=== PATIENT | female | born 1945 | race Caucasian/White ===

== ENCOUNTER 2018-09-06 14:20 | Observation (INO) | payer MEDICARE, BC ==
[~2018-09-06] VITALS: Ht 170.2 cm; Wt 67.6 kg
--- NOTE | ~2018-09-06 | EC ---
PATIENT:KARIN PARKER DATE OF SERVICE: 09/06/18 SEX: F MEDICAL RECORD: [id number] DATE OF : [birth year] LOCATION:D[facility] AGE OF PATIENT: 73 ADMISSION DATE: 09/06/18 REFERRING PHYSICIAN: INTERPRETING PHYSICIAN: JM BRUCE MD ECHOCARDIOGRAM REPORT ECHO CHARGES 4 ECHO COMPLETE Date: 09/07/18 CLINICAL DIAGNOSIS: TIA/HTN ECHOCARDIOGRAPHIC MEASUREMENTS (adult normal given) AC root (d.<3.7cm) 2.5 cm LV Septum d (<1.2 cm> 1.4 cm Valve Excursion 1.3 cm LV Septum (systole) 1.8 cm Left Atria (s.<4.0cm> 2.6 cm LVPW d(<1.2cm) 1.5 cm RV (d.<2.3cm) 3.3 cm LVPW (sytole) 1.6 cm LV diastole(<5.6CM) 4.5 cm MV E-F(>70mm/sec) cm LV systole 2.8 cm LVOT Diameter 1.9 cm MV exc.(>10mm) 1.2 cm Est.ejection fraction (50-75%) % DOPPLER: LVIT cm/sec A 85.0 cm/sec E 79.0 cm/sec LA cm/sec RVSP 19 mmHg LVOT 120 cm/sec AOP1/2T m/s Asc. Ao 162 cm/sec RVOT 113 cm/sec RA cm/sec PA 120 cm/sec AV Gradient Peak 10.50mmHg AV Mean 6.90 mmHg AV Area 2.2 cm MV Gradient Peak 5.00 mmHg MV Mean 1.40 mmHg MV Area cm COMMENTS: Stripper And Opaquer Apprentice: 2 TORI ADAMS Slag Dumper: 1 Dr. Bruce TAPE# PACS Pericardial Effusion N DATE OF SERVICE: FINDINGS: 1. Left ventricular chamber size is within normal limits. Left ventricular systolic function is normal. Overall ejection fraction is estimated at 60%. 2. Left atrium, right atrium, and right ventricle chamber sizes are within normal limit. 3. Valvular structures have normal structure and motion. 4. Doppler interrogation reveals only trace tricuspid regurgitation. No other valvular insufficiency or stenosis. Pulmonary systolic pressure is estimated at ECHOCARDIOGRAM REPORT [id number] KARIN PARKER N 19 mmHg. 5. No evidence of pericardial effusion or left ventricular thrombus. TRANSINT:[id number] Voice Confirmation ID: [id number] DOCUMENT ID: [id number] JM BRUCE MD at 1914 CC: [id number] DICTATION DATE: 09/08/18 1100 INHALATION THERAPY TEACHER: 09/08/18 1224 DIS IN 09/07/18 [facility] [address] [id number]
[~2018-09-06 14:20] MED LIST: HYDROCHLOROTHIA25 MG PO; PREVACID30 MG PO; SYNTHROID88 MCG PO
[2018-09-06 15:04] LABS: BASOPHILS 0.3 % (0-2); EOSINOPHILS 0 % (0-7); HEMATOCRIT 36.7 % (36.0-48.0); HEMOGLOBIN 12.6 g/dL (12-16); IMMATURE GRANULOCYTES 0.2 % (0-5); LYMPHOCYTES 19.7 % (15-50); MCH 31.7 pg (26.0-34.0); MCHC 34.3 g/dL (31.0-37.0); MCV 92.2 fL (80.0-100.0); MEAN PLATELET VOLUME 10.2 fL (7.4-10.4); MONOCYTES 7.2 % (2-11); NEUTROPHILS 72.6 % (40-80); PLATELET COUNT 277 10x3/uL (130-400); RBC 3.98 10x6/uL (4.00-5.40); WBC 6.7 10x3/uL (4.8-10.8)
[2018-09-06 15:12] LABS: APTT 25.6 SECONDS (22.8-39.4); INR 0.97 (0.85-1.17); PROTIME 12.5 SECONDS (11.6-15.0)
[2018-09-06 15:18] LABS: ALBUMIN 3.9 g/dL (3.4-5.0); ALKALINE PHOSPHATASE 91 U/L (46-116); ALT (SGPT) 20 U/L (10-68); BILIRUBIN - TOTAL 0.66 mg/dL (0.2-1.3); CALC OSMOLALITY 279 mosm/kg (275-300); CHLORIDE - SERUM 100 mmol/L (98-107); CREATININE - SERUM 1.2 mg/dL (0.6-1.3); GLUCOSE 113 mg/dL (74-106); POTASSIUM - SERUM 3.4 mmol/L (3.5-5.1); PROTEIN - SERUM 7.5 g/dL (6.4-8.2); SODIUM 139 mmol/L (136-145); UREA NITROGEN 16 mg/dL (7-18); eGFR NON AFRICAN AMERICAN 47 mL/min (90-120)
[2018-09-06 15:31] LABS: CREATINE KINASE 95 UL (21-215); PRO BNP 83 pg/mL (0-125)
[2018-09-06 15:55] LABS: TROPONIN-I < 0.017 ng/mL (0.000-0.060)
[2018-09-06 15:56] LABS: CKMB 1.4 U/L (0.0-3.6)
[2018-09-06 18:52] LABS: CHOL - HDL RATIO 3.4 ratio (2.3-4.1); LDL-HDL RATIO 2.2 ratio (1.5-3.5)
[2018-09-06 19:16] LABS: CKMB 1.1 U/L (0.0-3.6); CREATINE KINASE 90 UL (21-215)
[2018-09-06 20:00] VITALS: BP 152/70
[2018-09-06 21:52] VITALS: BMI 23.4
[2018-09-07] VITALS: BP 128/56
[2018-09-07 01:16] LABS: CREATINE KINASE 88 UL (21-215); TROPONIN-I 0.031 ng/mL (0.000-0.060)
[2018-09-07 04:00] VITALS: BP 131/57
[2018-09-07 06:29] LABS: BASOPHILS 0.6 % (0-2); HEMATOCRIT 34.9 % (36.0-48.0); HEMOGLOBIN 11.8 g/dL (12-16); IMMATURE GRANULOCYTES 0.2 % (0-5); LYMPHOCYTES 40.4 % (15-50); MCH 31.4 pg (26.0-34.0); MCHC 33.8 g/dL (31.0-37.0); MCV 92.8 fL (80.0-100.0); MEAN PLATELET VOLUME 10.8 fL (7.4-10.4); MONOCYTES 11.7 % (2-11); NEUTROPHILS 45.1 % (40-80); PLATELET COUNT 271 10x3/uL (130-400); RBC 3.76 10x6/uL (4.00-5.40); RDW 14.1 % (11.5-14.5)
[2018-09-07 07:14] LABS: CKMB 0.7 U/L (0.0-3.6); CREATINE KINASE 89 UL (21-215); TROPONIN-I 0.024 ng/mL (0.000-0.060)
[2018-09-07 07:15] LABS: MAGNESIUM - SERUM 1.7 mg/dL (1.8-2.4)
[2018-09-07 07:16] LABS: ANION GAP 12.6 mmol/L (8-16); CALCIUM 8.6 mg/dL (8.5-10.1); CARBON DIOXIDE 28.1 mmol/L (21.0-32.0); POTASSIUM - SERUM 3.7 mmol/L (3.5-5.1)
[2018-09-07 07:17] LABS: ALBUMIN 3.3 g/dL (3.4-5.0); BILIRUBIN - TOTAL 0.8 mg/dL (0.2-1.3); PROTEIN - SERUM 6.2 g/dL (6.4-8.2)
[2018-09-07 09:37] VITALS: BP 117/54
[2018-09-07 13:10] VITALS: Ht 170.2 cm; Wt 67.6 kg
[2018-09-07] MEDS ORDERED: ASPIRIN325 MG PO (13:27)
[2018-09-07] MEDS ORDERED: CRESTOR10 MG PO (13:28)
[2018-09-07] MEDS ORDERED: CO Q-10400 MG PO (13:28)
[2018-09-07 16:42] VITALS: BP 121/63
== END 2018-09-07 16:45 | disposition home or self-care (01) ==
LOC: D.ER 14:20 → D.EDHOLD 17:24 → OBSVTIME 17:24 → D.MS 18:38
PROVIDERS: Family Medicine
DX: G45.9 Transient cerebral ischemic attack, unspecified (principal); I10 Essential (primary) hypertension; E03.9 Hypothyroidism, unspecified; K21.9 Gastro-esophageal reflux disease without esophagitis; R20.2 Paresthesia of skin

== ENCOUNTER 2018-09-17 07:17 | Outpatient (CLI) | payer MEDICARE, BC ==
[~2018-09-17] VITALS: Ht 170.2 cm; Wt 69.1 kg
--- NOTE | ~2018-09-17 | OP ---
PATIENT NAME: KARIN PARKER MEDICAL RECORD: [id number] :47 LOCATION:D.CAT ADMISSION DATE: SURGEON: JM CHOI MD DATE OF OPERATION: 09/17/2018 PROCEDURES: 1. Aortofemoral runoff. 2. Abdominal aortography. 3. Bilateral selective renal angiography. INDICATION: Renovascular hypertension, leg pain compatible with claudication. PROCEDURE IN DETAIL: After informed consent was obtained and after a detailed description of risks, benefits as well as alternative therapies, the patient elected to proceed with angiogram. The right femoral area was prepped and draped in normal sterile fashion. Right femoral artery was cannulated via modified Seldinger technique with placement of 5-Venezuelan sheath. All catheters exchanged through this sheath. FINDINGS: There was subselection of each renal artery. 1. Right renal: The right renal artery is a solitary artery off the aorta with no significant pressure damping at the ostium. No significant renal artery stenosis. 2. Left renal artery: The left renal artery is 2 arteries, 1 to the superior pole and 1 to the remainder of the kidney. Both arteries are free of renal artery stenosis. Abdominal aortography was performed. The catheter was pulled down for aortofemoral runoff. Abdominal aortography reveals no significant abdominal aortic disease, no dissection or aneurysm formation. RIGHT LEG: A. Iliac: The common internal and external iliacs have no significant angiographic disease. B. Femoral system: The common superficial and deep femoral have no significant angiographic disease. C. Popliteal and infrapopliteal vessels are widely patent with no significant angiographic disease. LEFT LEG: A. Iliac: The common internal and external iliacs have no significant angiographic disease. B. Femoral system: The common superficial and deep femoral have no significant angiographic disease. C. Popliteal and infrapopliteal vessels are widely patent with no significant angiographic disease. OVERALL IMPRESSION: No significant peripheral vascular disease is present. No renal artery stenosis. Continue medical management of essential hypertension. Evaluate nonarterial vascular etiology of leg pain. TRANSINT:[id number] Voice Confirmation ID: [id number] DOCUMENT ID: [id number] OPERATIVE REPORT [id number] KARIN PARKER JM CHOI MD at 1235 CC: [id number] DICTATION DATE: 09/17/18 1021 NITROCELLULOSE MAKER: 09/17/18 1052 [facility] [address] [facility] [id number]
--- NOTE | ~2018-09-17 | OP ---
PATIENT NAME: KARIN PARKER MEDICAL RECORD: [id number] :47 LOCATION:D.CAT ADMISSION DATE: SURGEON: JM CHOI MD DATE OF OPERATION: 09/17/2018 PROCEDURE: 1. Left heart catheterization. 2. Selective coronary angiography. 3. Left ventriculogram. 4. Four-vessel carotid and vertebral angiography. PROCEDURE: After informed consent was obtained and after a detailed description of risks, benefits as well as alternative therapies, the patient elected to proceed with angiogram. FINDINGS: Left ventriculogram was performed in standard 30-degree PIERCE view, reveals good cardiac wall motion throughout all segments. Overall ejection fraction estimated 60%. SELECTIVE CORONARY ANGIOGRAPHY: Left main, left anterior descending, left circumflex, right coronary artery are all smooth-walled vessels with no angiographic evidence of coronary artery disease. Four-vessel carotid vertebral angiography was performed with subselection of each subclavian as well as the left carotid. Right side: The common internal and external carotids have no significant disease. Vertebral artery has no significant disease. Left side: The common internal and external carotids have no significant disease. Vertebral artery has no significant disease. OVERALL IMPRESSION: 1. No coronary disease is present. 2. No carotid vascular disease is present. 3. Normal left ventricular systolic function. TRANSINT:[id number] Voice Confirmation ID: [id number] DOCUMENT ID: [id number] JM CHOI MD at 1235 CC: [id number] DICTATION DATE: 09/17/18 1021 SALES AND SERVICE ADVISOR: 09/17/18 1052 REG [facility] [address] [place] [address]
--- NOTE | ~2018-09-17 | HEMODYNAMI ---
PATIENT:KARIN PARKER MEDICAL RECORD: [id number] : 47 [id number] ADMISSION DATE: 09/17/18 Generatedon:09/17/201810:15 Patient name: KARIN PARKER Patient #: [id number] SSN: [id number] : 1945 Date of study: 09/17/2018 Page: Of Hemodynamic Procedure Report Patient Data Patient Demographics Procedure consent was obtained First Name: KARIN Gender: Female Last Name: ELENA : 1945 [facility] Initial: N Age: 73 year(s) Patient #: [id number] Race: SSN: [id number] Additional ID: [id number] Contact details Address: [address] [place] [address] State: [place] City: [place] Zip code: [address] Admission Admission Data Admission Date: 09/17/2018 Admission Time: 7:17 Arrival Date: 09/17/2018 Arrival Time: 9:30 Admit Source: Other Insurance Payor: Medicare Procedure Procedure Types Cath Procedure Diagnostic Procedure LHC LHC w/Coronaries Peripheral Cath Diagnostic Procedure Director Of Housing And Energy Services Peripheral Procedures Craeo-Qvlblbs-Ptu-Off Four Vessel Arteriogram Renal Arteriogram Procedure Description Procedure Date Procedure Date: 09/17/2018 Procedure Start Time: 10:03 Procedure End Time: 10:13 Procedure Staff Name Function Nicholas Bruce MD Performing Physician Sandy Hernandez RT Monitor Melida Egan RT Scrub Gerson Soltiario RN Nurse Procedure Data Cath Procedure Fluoroscopy Diagnostic fluoroscopy Total fluoroscopy Time: 2 time: 2 min min Diagnostic fluoroscopy Total fluoroscopy dose: 215 dose: 215 mGy mGy Contrast Material Contrast Material Type Amount (ml) Isovue 300 103 Entry Location Entry Primary Successful Side Size Upsize Upsize Entry Closure Succes sful Closure Location (Fr) 1 (Fr) 2 (Fr) Remarks Device Remarks Femoral Left 5 Fr Exoseal artery Estimated blood loss: 5 ml Diagnostic catheters Device Type Used For End Catheter Placement MULTIPACK Pigtail 5 Fr LV Angiography catheter MULTIPACK JL 4.0 5Fr Left Coronary catheter Angiography MULTIPACK 3DRC 5Fr Multi-vessel catheter Angiography Procedure Complications No complications Procedure Medications Medication Administration Route Dosage 0.9% NaCl I.V. 100 ml/hr Oxygen etCO2 Nasal cannula 2 l/min Heparin Flush Bag added to field 2 bags (1000units/500ml NS) Lidocaine 2% added to field 20 Versed I.V. 2 mg Fentanyl I.V. 100 mcg Versed I.V. 1 mg Versed I.V. 1 mg Hemodynamics Rest Heart Rate: 78 (bpm) Pressure Samples Time Site Value (mmHg) Purpose Heart Use Rate(bpm) 10:04 LV 62/8,15 Snapshot 66 Snapshots Pre Cath Intra NCS Post Cath Vital Signs Time Heart Resp SPO2 etCO2 NIBP (mmHg) Rhythm Pain Sedation Rate (ipm) (%) (mmHg) Status Level (bpm) 9:38:54 81 25 100 33.7 177/79(110) NSR 0 (11) 10(A) , No pain 9:43:22 75 19 100 33.7 163/76(110) NSR 0 (11) 10(A) , No pain 9:47:48 71 14 99 35.2 148/65(113) NSR 0 (11) 10(A) , No pain 9:52:08 68 14 98 35.2 149/65(110) NSR 0 (11) 10(A) , No pain 9:56:28 69 12 99 35.2 147/68(113) NSR 0 (11) 10(A) , No pain 10:00:53 63 12 98 29.2 125/55(89) NSR 0 (11) 9(A) , No pain 10:05:07 64 19 98 35.9 125/60(94) NSR 0 (11) 9(A) , No pain 10:09:21 67 14 98 37.4 127/62(95) NSR 0 (11) 10(A) , No pain 10:13:37 69 27 98 33.7 129/57(94) NSR 0 (11) 10(A) , No pain Medications Time Medication Route Dose Verified Delivered Reason Notes Eff ectiveness by by 9:36:47 0.9% NaCl I.V. 100 Gerson Gerson Per ml/hr Altaf Solitario physician RN RN 9:36:58 Oxygen etCO2 2 Gerson Gerson Per Nasal l/min Altaf Solitario physician cannula RN RN 9:37:10 Heparin Flush added 2 Gerson Gerson used for Bag to bags Altaf Solitario procedure (1000units/500ml field RN RN NS) 9:37:19 Lidocaine 2% added 20ml Gerson Gerson for local to vial Lorigan Lorigan anesthetic field RN RN 9:56:10 Versed I.V. 2 mg Gerson Gerson for Lorigan Lorigan sedation RN RN 9:56:20 Fentanyl I.V. 100 Gerson Gerson for mcg Lorigan Lorigan sedation RN RN 9:58:38 Versed I.V. 1 mg Gerson Gerson for Lorigan Lorigan sedation RN RN 10:03:22 Versed I.V. 1 mg Gerson Gerson for Lorigan Lorigan sedation RN commercial credit portfolio manager Log Time Note 9:03:55 Gerson Solitario RN sent for patient. Start room use. 9:04:24 Time tracking: Regular hours (M-F 7:00 - 5:00) 9:04:28 Plan of Care:Hemodynamics will remain stable., Cardiac rhythm will remain stable., Comfort level will be maintained., Respiratory function will remain adequate., Patient/ family verbilizes understanding of procedure., Procedure tolerated without complication., Recovers from procedure without complications.. 9:04:57 Informed consent obtained and on chart 9:05:28 Admit Source: Other 9:05:30 Arrival Date: 09/17/2018 9:30:00 AM 9:05:42 Insurance Payor : Medicare 9:36:47 0.9% NaCl 100 ml/hr I.V. was administered by Gerson Solitario RN; Per physician; 9:36:58 Oxygen 2 l/min etCO2 Nasal cannula was administered by Gerson Solitario RN; Per physician; 9:37:10 Heparin Flush Bag (1000units/500ml NS) 2 bags added to field was administered by Gerson Solitario RN; used for procedure; 9:37:19 Lidocaine 2% 20ml vial added to field was administered by Gerson Solitario RN; for local anesthetic; 9:37:38 Vital chart was started 9:42:00 Patient received from Pre/Post Procedure [facility] to [facility] Alert and oriented. Tansferred to table in Supine position. 9:42:01 Warm blankets applied, and philip hugger turned on for patient comfort. 9:42:01 Correct patient and procedure confirmed by team. 9:42:02 ECG and BP/O2 sat monitors applied to patient. 9:42:03 Baseline sample Acquired. 9:42:08 Rhythm: sinus rhythm 9:42:09 Full Disclosure recording started 9:42:13 H&P Date Dictated: 09/17/2018 Within 30 days and on chart., H&P Addendum completed by physician on day of procedure. (MUST COMPLETE FOR ALL OUTPATIENTS). 9:42:15 Pre-procedure instructions explained to patient. 9:42:15 Pre-op teaching completed and patient verbalized understanding. 9:42:17 Family in waiting room. 9:42:19 Patient NPO since Midnight. 9:42:20 Is the patient allergic to Iodine/contrast media? Yes. 9:42:31 Was the patient premedicated? Yes 9:42:32 Is patient on blood thinner?No 9:42:33 Patient diabetic? No. 9:42:36 Previous problem with sedation/anesthesia? No ? 9:42:38 Snore? Yes 9:42:44 Sleep apnea? No 9:42:45 Deviated septum? No 9:42:46 Opens mouth fully? Yes 9:42:47 Sticks out tongue? Yes 9:42:49 Airway obstruction? No ? 9:42:51 Dentures? No ? 9:42:55 Pre procedure: right dorsailis pedis pulse 1+ Palpable, but thready & weak; easily obliterated 9:42:58 Pre procedure: left dorsailis pedis pulse 1+ Palpable, but thready & weak; easily obliterated 9:42:59 Patient pain scale 0/10 ?. 9:43:04 IV patent on arrival in left forearm with 0.9% NaCl at [facility]. 9:43:07 Lab results completed and on chart. 9:43:11 Bilateral groins area was prepped with chlora-prep and draped in sterile fashion 9:43:12 Alarms reviewed by R. N. 9:43:12 Sharps counted by scrub and verified by R.N. 9:48:47 Zero performed for pressure channel P1 9:54:07 Physician arrived 9:54:07 --------ALL STOP TIME OUT------ 9:54:08 Final Timeout: patient, procedure, and site verified with staff and physician. All members of the team are in agreement. 9:54:10 Bilateral groins site verified by team. 9:54:12 Physical assessment completed. ASA score P 2 - A patient with mild systemic disease as per Nicholas Bruce MD. 9:54:15 Sedation plan: IV Moderate Sedation Medication:Versed, Fentanyl 9:55:54 Use device set Femoral Dx 9:55:55 ACIST Syringe (86131) opened to sterile field. 9:55:55 Bag Decanter (2002S) opened to sterile field. 9:55:56 Medline Cath Pack ([id number]) opened to sterile field. 9:55:56 DIAGNOSTIC WIRE .035 260cm J wire (916839) opened to sterile field. 9:55:58 ACIST Hand Control (58918) opened to sterile field. 9:55:58 ACIST Manifold (06175) opened to sterile field. 9:55:59 DIAGNOSTIC Multipack 5Fr catheter set ([id number]) opened to sterile field. 9:55:59 Tegaderm 4 x 4 (1626W) opened to sterile field. 9:56:01 SHEATH Prelude 5Fr 0.035 (VBN-7F-60-035) opened to sterile field. 9:56:10 Versed 2 mg I.V. was administered by Gerson Solitario RN; for sedation; 9:56:20 Fentanyl 100 mcg I.V. was administered by Gerson Solitario RN; for sedation; 9:58:38 Versed 1 mg I.V. was administered by Gerson Solitario RN; for sedation; 10:02:59 Procedure started. 10:03:07 Local anesthetic to left femerol artery with Lidocaine 2% by Nicholas Bruce MD.INITIAL ACCESS ONLY 10:03:16 A 5 Fr sheath was inserted into the Left Femoral artery 10:03:22 Versed 1 mg I.V. was administered by Gerson Solitario RN; for sedation; 10:03:41 A MULTIPACK Pigtail 5 Fr catheter was advanced over the wire and used for LV Angiography. 10:04:45 LV hemodynamics recorded. 10:04:46 LV gram done using PIERCE 10:04:49 Injector settings: Ml/sec: 5, Volume: 15, 10:04:59 EF : 60 % 10:05:14 Abdominal angiogram w/ runoff was performed. 10:06:06 Catheter removed. 10:06:52 A MULTIPACK JL 4.0 5Fr catheter was advanced over the wire and used for Left Coronary Angiography. 10:07:13 LCA angiography performed. 10:07:16 Injector settings: Ml/sec: 3, Volume: 6, 10:07:34 Catheter removed. 10:07:41 A MULTIPACK 3DRC 5Fr catheter was advanced over the wire and used for Multi-vessel Angiography. 10:08:58 Bilateral carotid angiography performed. 10:09:32 RCA angiography performed. 10:09:57 Bilateral renal angiography performed. 10:10:44 Catheter removed. 10:11:07 EXOSEAL 5Fr (EX500) opened to sterile field. 10:11:39 Sheath removed intact; hemostasis achieved with Exoseal to the Left Femoral artery. 10:11:43 Procedure ended.(Physican Out) 10:11:59 Fluoroscopy time 02.00 minutes. 10:12:03 Fluoroscopy dose: 215 mGy 10:12:03 Flurop Dose total: 215 10:12:07 Contrast amount:Isovue 300 103ml. 10:12:11 Sharps counted by scrub and verified by R.N. 10:12:12 Insertion/operative site no bleeding no hematoma. 10:12:15 Post-op/insertion site Left Femoral artery dressed using a 4 x 4 and Tegaderm. 10:12:19 Post left femerol artery:stable 10:12:23 Post procedure rhythm: unchanged. 10:12:29 Estimated blood loss: 5 ml 10:12:30 Post procedure instruction explained to patient.Patient verbalizes understanding. 10:12:30 Patient needs reinforcement of post procedure teaching. 10:12:45 Procedure type changed to Cath procedure, Diagnostic procedure, LHC, LHC w/Coronaries, Peripheral Cath Diagnostic Procedure, Director Of Housing And Energy Services Peripheral Procedures, Tniqc-Dwholli-Bce-Off, Four Vessel Arteriogram, Renal Arteriogram 10:12:46 Procedure and supply charges have been captured, reviewed, submitted and are correct. 10:12:50 Procedure Complication : No complications 10:12:52 Vital chart was stopped 10:12:52 See physician's report for complete and final results. 10:12:56 Report given to Pre/Post Procedure Room. 10:12:59 Patient transfered to Pre/Post Procedure Room with Stretcher. 10:13:01 Procedure ended. 10:13:01 Full Disclosure recording stopped 10:13:06 End room use (Document Last) Device Usage Item Name Manufacture Quantity Catalog Number Hospital Part Current M inimal Lot# / Charge Number Stock Stock Serial# Code ACIST Syringe Acist 1 17428 [id number] [id number] [id number] 2 0 (95129) [employer] Bag Decanter Microtek 1 2001S 703011 58114 162650 5 (2001S) Medical Inc. Medline Cath Medline 1 [id number] 064456 50944 539987 5 Pack ([id number]) DIAGNOSTIC WIRE [address] 1 063071 117998 961717 012177 3 0 .035 260cm J wire (360314) ACIST Hand Acist 1 93960 817456 535970 137578 5 Control (15901) [employer] ACIST Manifold Acist 1 39720 360795 843337 763133 5 (10709) [employer] DIAGNOSTIC Cardinal 1 [id number] 249072 71519 251637 3 0 Multipack 5Fr Health catheter set (ZA4484) Tegaderm 4 x 4 3M 1 1626W 735773 571908 172678 5 (1626W) SHEATH Prelude Merit 1 [id number] 151855 736882 245587 5 5Fr 0.035 Medical ([id number]-[id number]) MULTIPACK Cardinal 1 [id number] 5 Pigtail 5 Fr Health catheter MULTIPACK JL Cardinal 1 172564 5 4.0 5Fr Health catheter MULTIPACK 3DRC Cardinal 1 932798 5 5Fr catheter Health EXOSEAL 5Fr Cardinal 1 EX500 401628 665892 995780 1 0 (EX500) Health Signature Audit [place] Stage Time Signature Unsigned Intra-Procedure 09/17/2018 Melida Egan 10:15:33 AM RT(R) Signatures Monitor : Sandy Hernandez Signature : RT Date : Time : [id number] [place] [address]
[~2018-09-17 07:17] MED LIST changes: +ASPIRIN325 MG PO; +CO Q-10400 MG PO; +CRESTOR10 MG PO
[2018-09-17] MEDS ORDERED: HYDRALAZINE HCL25 MG PO (07:41)
[2018-09-17 07:52] VITALS: BP 165/79; Ht 170.2 cm; Wt 69.1 kg
[2018-09-17] MEDS ORDERED: NEXIUM20 MG PO (08:00)
[2018-09-17] MEDS ORDERED: OS-CAL500 MG PO (08:01)
[2018-09-17] MEDS ORDERED: KLOR-CON 1010 MEQ PO (08:01)
[2018-09-17 08:36] LABS: ANION GAP 15.7 mmol/L (8-16); CALCIUM 9.2 mg/dL (8.5-10.1); CARBON DIOXIDE 27.3 mmol/L (21.0-32.0); CREATININE - SERUM 1.4 mg/dL (0.6-1.3)
[2018-09-17 08:59] LABS: BASOPHILS 0 % (0-2); EOSINOPHILS 0 % (0-7); HEMOGLOBIN 13.9 g/dL (12-16); IMMATURE GRANULOCYTES 0.1 % (0-5); LYMPHOCYTES 11.6 % (15-50); MCH 31.8 pg (26.0-34.0); MCHC 34.8 g/dL (31.0-37.0); MCV 91.5 fL (80.0-100.0); MEAN PLATELET VOLUME 11.1 fL (7.4-10.4); MONOCYTES 0.9 % (2-11); NEUTROPHILS 87.4 % (40-80); PLATELET COUNT 369 10x3/uL (130-400); RBC 4.37 10x6/uL (4.00-5.40); RDW 13.7 % (11.5-14.5)
== END 2018-09-17 12:23 | disposition home or self-care (01) ==
LOC: D.CATH 07:17
PROVIDERS: Internal Medicine Interventional Cardiology
DX: R07.89 Other chest pain (principal); M79.606 Pain in leg, unspecified; I10 Essential (primary) hypertension; Z01.812 Encounter for preprocedural laboratory examination

== ENCOUNTER 2019-11-25 08:00 | Outpatient (CLI) | payer MEDICARE, BC ==
[2018-09-17 07:52] VITALS: BMI 23.8
[~2019-11-25 08:00] MED LIST changes: +HYDRALAZINE HCL25 MG PO; +KLOR-CON 1010 MEQ PO; +NEXIUM20 MG PO; +OS-CAL500 MG PO
== END 2019-11-25 23:59 | disposition home or self-care (01) ==
LOC: D.MAMMO 08:00
PROVIDERS: ATTEND Clinical Nurse Specialist Adult Health
DX: Z12.31 Encounter for screening mammogram for malignant neoplasm of breast (principal)

== ENCOUNTER → 2021-04-26 10:30 | Outpatient (CLI) | payer MEDICARE, BC ==
[2018-09-17 07:52] VITALS: BMI 23.8
== END | disposition home or self-care (01) ==
LOC: D.MAMMO 10:30
PROVIDERS: ATTEND Clinical Nurse Specialist Adult Health
DX: Z12.31 Encounter for screening mammogram for malignant neoplasm of breast (principal)